=== PATIENT | male | born 1990 | race Caucasian/White ===

== ENCOUNTER 2020-08-14 17:42 | Emergency (ER) | payer SELFPAY ==
[~2020-08-14] VITALS: Ht 165.1 cm; Wt 86.0 kg
[2020-08-14 18:48] LABS: BASOPHILS % 0.9 % (0.0-2.0); EOSINOPHILS % 0.4 % (0.0-5.0); HEMATOCRIT. 40.3 % (42.0-52.0); HEMOGLOBIN. 14.2 g/dL (14.0-18.0); MEAN CORPUSCULAR HEMOGLOBIN 29.5 pg (28.0-32.0); MEAN CORPUSCULAR VOLUME 83.8 fL (80.0-94.0); MEAN PLATELET VOLUME 8.4 fl (7.4-10.4); MONOCYTES % 9.4 % (2.0-8.0); NEUTROPHILS % 66.3 % (40.0-76.0); PLATELET 194 x1000/uL (130-400)
[2020-08-14 18:53] LABS: CHLORIDE 102 mEq/L (98-107)
[2020-08-14 20:30] VITALS: BP 122/77
== END 2020-08-14 22:29 | disposition home or self-care (01) ==
LOC: ER 17:42
DX: R00.2 Palpitations (principal); F41.9 Anxiety disorder, unspecified; I10 Essential (primary) hypertension
CPT/HCPCS: 36415; 71045; 80048; 84484; 85025; 93005; 99285